=== PATIENT | female | born 2000 | race Caucasian/White ===

== ENCOUNTER 2021-07-14 23:00 | Emergency (ER) | payer MEDICAID ==
[~2021-07-14] VITALS: Ht 157.5 cm; Wt 65.8 kg
[2021-07-14 23:11] VITALS: BP_SYST 112
[2021-07-15 01:05] VITALS: BP_SYST 121
== END 2021-07-15 01:05 | disposition home or self-care (01) ==
LOC: SED 23:00
DX: T59.91XA Toxic effect of unspecified gases, fumes and vapors, accidental (unintentional), initial encounter (principal); R07.9 Chest pain, unspecified; Y92.9 Unspecified place or not applicable; J68.9 Unspecified respiratory condition due to chemicals, gases, fumes and vapors; Z88.0 Allergy status to penicillin
CPT/HCPCS: 71045; 93005; 99283